=== PATIENT | female | born 1975 ===

== ENCOUNTER 2018-10-28 16:20 | Emergency (ER) | payer MEDICAID ==
[2018-10-28 17:10] VITALS: BMI 30.9
[2018-10-28 17:13] VITALS: BP 105/71; PULSE 85; RESP 18; TEMP 98.4; O2SAT 98
[2018-10-28] MEDS ORDERED: Bacitracin Opht OINT 3.5GM OD STA (18:27)
--- NOTE | 2018-10-28 18:29 | C.PDOC ---
History Of Present Illness 43-year-old female presents to the ED for evaluation of redness, swelling, and pain to her right eye which began since yesterday morning. She denies fever, chills, and vision changes at this time. Time Seen by Provider: 10/28/18 18:15 Chief Complaint (Nursing): Eye Problem History Per: Patient History/Exam Limitations: no limitations Onset/Duration Of Symptoms: Hrs Current Symptoms Are (Timing): Still Present Past Medical History Reviewed: Historical Data, Nursing Documentation, Vital Signs Vital Signs: Last Vital Signs Temp 98.4 F 10/28/18 17:09 Pulse 85 10/28/18 17:09 Resp 18 10/28/18 17:09 BP 105/71 10/28/18 17:09 Pulse Ox 98 10/28/18 17:09 - Medical History PMH: No Chronic Diseases Surgical History: No Surg Hx Family History: States: Unknown Family Hx - Social History Hx Alcohol Use: No Hx Substance Use: No - Immunization History Hx Tetanus Toxoid Vaccination: No Hx Influenza Vaccination: No Hx Pneumococcal Vaccination: No Review Of Systems Eyes: Positive for: Redness (right). Negative for: Vision Change Physical Exam - Physical Exam Appears: Non-toxic, No Acute Distress Skin: Normal Color, Warm, Dry Head: Atraumatic, Normacephalic Eye(s): bilateral: PERRL, EOMI Oral Mucosa: Moist Neck: Supple Extremity: Normal ROM Neurological/Psych: Oriented x3, Normal Speech, Normal Cognition ED Course And Treatment O2 Sat by Pulse Oximetry: 98 Medical Decision Making Medical Decision Making: Bacitracin OD was applied. On reassessment, patient is resting comfortably showing no signs of distress and stable for discharge. She is advised to follow up with eye care within 1 to 2 days for further evaluation. Disposition Counseled Patient/Family Regarding: Diagnosis, Need For Followup, Rx Given - Disposition Referrals: [facility] [Outside] Disposition: HOME/ ROUTINE Disposition Time: 18:28 Condition: STABLE Additional Instructions: Follow up with your doctor or our clinic. Prescriptions: DiphenhydrAMINE [Benadryl] 50 mg PO HS #8 cap Forms: [facility] (N[place]ian), General Discharge Instructions - POA Present On Arrival: None - Clinical Impression Clinical Impression: Edema of eyelid
== END 2018-10-28 18:39 | disposition home or self-care (01) ==
LOC: C.ER 16:20
DX: H02.843 Edema of right eye, unspecified eyelid (principal)

== ENCOUNTER 2018-11-17 15:52 | Emergency (ER) | payer MEDICAID ==
[2018-11-17 15:53] VITALS: BMI 30.9
[2018-11-17 16:09] VITALS: BP 97/63; PULSE 80; RESP 20; TEMP 98.3; O2SAT 100
[2018-11-17 16:45] LABS: SQUAMOUS EPITHIAL < 1 /hpf (0-5); URINE BACTERIA RARE (<OCC); URINE BILIRUBIN NEGATIVE (NEGATIVE); URINE BLOOD NEGATIVE (NEGATIVE); URINE CLARITY Clear (Clear); URINE COLOR Yellow (YELLOW); URINE GLUCOSE (UA) NORMAL (Normal); URINE LEUKOCYTE ESTERASE NEG Leu/uL (Negative); URINE PROTEIN NEGATIVE (NEGATIVE); URINE UROBILINOGEN NORMAL mg/dL (0.2-1.0)
--- NOTE | 2018-11-17 17:34 | C.PDOC ---
History Of Present Illness 43 y/o female comes in to ED complaining of suprapubic pain x4 days after having sex. Patient denies vaginal bleeding or discharge, no urinary symptoms, no nausea, vomiting, diarrhea, fever, back pain, or other symptoms. Patient also complains of right upper arm pain that radiates to her neck for the past few days. Denies numbness, tingling, or injury. Time Seen by Provider: 11/17/18 16:08 Chief Complaint (Nursing): Female Genitourinary History Per: Patient History/Exam Limitations: no limitations Onset/Duration Of Symptoms: Days Current Symptoms Are (Timing): Still Present Past Medical History Reviewed: Historical Data, Nursing Documentation, Vital Signs Vital Signs: Last Vital Signs Temp 98.3 F 11/17/18 16:04 Pulse 80 11/17/18 16:04 Resp 20 11/17/18 16:04 BP 97/63 L 11/17/18 16:04 Pulse Ox 100 11/17/18 16:04 Family History: States: No Known Family Hx - Social History Hx Alcohol Use: Yes Hx Substance Use: No - Immunization History Hx Tetanus Toxoid Vaccination: No Hx Influenza Vaccination: No Hx Pneumococcal Vaccination: No Review Of Systems Constitutional: Negative for: Fever, Chills Cardiovascular: Negative for: Chest Pain Respiratory: Negative for: Cough, Shortness of Breath Gastrointestinal: Positive for: Abdominal Pain (suprapubic). Negative for: Nausea, Vomiting, Diarrhea Genitourinary: Negative for: Vaginal Discharge, Vaginal Bleeding Musculoskeletal: Positive for: Arm Pain (right upper arm). Negative for: Back Pain Physical Exam - Physical Exam Appears: Non-toxic, No Acute Distress Skin: Warm, Dry Head: Atraumatic, Normacephalic Eye(s): bilateral: Normal Inspection Oral Mucosa: Moist Neck: No Midline Cervical Tenderness, No Other (trapezius tenderness) Cardiovascular: Rhythm Regular, No Murmur Respiratory: Normal Breath Sounds, No Rales, No Rhonchi, No Wheezing Gastrointestinal/Abdominal: Bowel Sounds (normal), Soft, Tenderness (mild suprapubic tenderness), No Distention, No Guarding, No Rebound Extremity: Tenderness (mild right shoulder tenderness, no swelling or redness), Capillary Refill (less than 2 seconds) Extremity: Bilateral: Normal Color And Temperature, Normal ROM Pulses: Right Radial: Normal Neurological/Psych: Oriented x3, Normal Speech, Normal Cognition ED Course And Treatment - Laboratory Results Lab Results: Urine Color Yellow (YELLOW) 11/17/18 16:39 Urine Clarity Clear (Clear) 11/17/18 16:39 Urine pH 5.0 (5.0-8.0) 11/17/18 16:39 Ur Specific [place] 1.018 (1.003-1.030) 11/17/18 16:39 Urine Protein Negative mg/dL (NEGATIVE) 11/17/18 16:39 Urine Glucose (UA) Normal mg/dL (Normal) 11/17/18 16:39 Urine Ketones Negative mg/dL (NEGATIVE) 11/17/18 16:39 Urine Blood Negative (NEGATIVE) 11/17/18 16:39 Urine Nitrate Negative (NEGATIVE) 11/17/18 16:39 Urine Bilirubin Negative (NEGATIVE) 11/17/18 16:39 Urine Urobilinogen Normal mg/dL (0.2-1.0) 11/17/18 16:39 Ur Leukocyte Esterase Neg [place]/uL (Negative) 11/17/18 16:39 Urine WBC (Auto) 1 /hpf (0-5) 11/17/18 16:39 Urine RBC (Auto) < 1 /hpf (0-3) 11/17/18 16:39 Ur Squamous Epith Cells < 1 /hpf (0-5) 11/17/18 16:39 Urine Bacteria Rare (<OCC) 11/17/18 16:39 O2 Sat by Pulse Oximetry: 100 (RA) Pulse Ox Interpretation: Normal Medical Decision Making Medical Decision Making: Plan: --Ibuprofen PO --UA --Urine Test pt with supapuubic pain x 4 days s/p sex, also right arm pain to mid humerus to neck x 2 days. ua, upreg neg,. abdomen soft,. nd,. nt after motrin. d/c home with ortho and jockey agent f/uwith jockey agent and Disposition Counseled Patient/Family Regarding: Studies Performed, Diagnosis, Need For Followup, Rx Given - Disposition Referrals: Yeu Heath MD [Non-Staff] - Yrn Avalos III, MD [Staff Provider] - [facility] [Outside] [facility] [Outside] Disposition: HOME/ ROUTINE Disposition Time: 17:36 Condition: GOOD Additional Instructions: Follow up with your PMD and with gynecology and orthopedics. Call tomorrow for appointments. Recommend no sexual activity until seen by gynecology. Take ibuprofen for pain (with food.) Return to ER for any worse symptoms. Prescriptions: Ibuprofen [Motrin] 600 mg PO TID #30 tab Forms: [facility] (Andorran), General Discharge Instructions - Clinical Impression Clinical Impression: Suprapubic discomfort, Right arm pain - PA / CORPORATE DEVELOPMENT MANAGER / Resident Statement MD/DO has reviewed & agrees with the documentation as recorded. - Scribe Statement The provider has reviewed the documentation as recorded by the Scribe Lucy Pak All medical record entries made by the Kennethibangelic were at my direction and personally dictated by me. I have reviewed the chart and agree that the record accurately reflects my personal performance of the history, physical exam, m edical decision making, and the department course for this patient. I have also personally directed, reviewed, and agree with the discharge instructions and disposition.
== END 2018-11-17 17:50 | disposition home or self-care (01) ==
LOC: C.ER 15:52
DX: R10.30 Lower abdominal pain, unspecified (principal); M79.601 Pain in right arm